=== PATIENT | female | born 1960 | race Caucasian/White ===

== ENCOUNTER 2017-12-24 22:51 | Inpatient (IN) | payer OTHER, MEDICAID ==
[~2017-12-24] VITALS: Ht 172.7 cm; Wt 92.3 kg
[2017-12-24 22:54] VITALS: Ht 172.7 cm; Wt 92.3 kg
[2017-12-24 23:50] LABS: BASOPHIL % 0.4 % (0-2); PLATELET COUNT 207 x10^3mcL (130-400); RED CELL DISTRIBUTION WIDTH 12.6 % (11.5-14.5)
[2017-12-24 23:58] LABS: CALCIUM 8.9 mg/dL (8.5-10.1); CARBON DIOXIDE 26.9 mmol/L (21-32); CHLORIDE SERUM 103 mmol/L (98-107); CREATININE SERUM 0.8 mg/dL (0.6-1.0); GFR1 > 60 mL/min; GLUCOSE SERUM 100 mg/dL (74-106); POTASSIUM SERUM 3.6 mmol/L (3.5-5.1); SODIUM SERUM 140 mmol/L (136-145)
[2017-12-25 00:05] LABS: ALBUMIN 3.5 g/dL (3.4-5.0); ALKALINE PHOSPHATASE 48 U/L (46-116); ALT/SGPT 19 U/L (14-59); AST/SGOT 16 U/L (15-37); BILIRUBIN TOTAL 0.3 mg/dL (0.20-1.00); TOTAL PROTEIN, SERUM 7.7 g/dL (6.4-8.2)
[2017-12-25] MEDS ORDERED: NOR5 PO ×2 (02:08→02:30)
[2017-12-25 04:02] VITALS: BP 146/85
[2017-12-25 04:04] LABS: T3 TOTAL 1.85 ng/mL
[2017-12-25 04:10] LABS: MAGNESIUM 1.8 mg/dL (1.8-2.4); PHOSPHOROUS 3.9 mg/dL (2.5-4.9)
[2017-12-25 04:16] LABS: CHOLESTEROL/HDL RATIO 4.8
[2017-12-25 04:30] LABS: FREE T4 1.24 ng/dL (0.76-1.46); FREE THYROXINE INDEX 3.3 ug/dL (1.4-4.5); T4(THYROXINE) 12.4 ug/dL (4.7-13.3)
[2017-12-25 04:49] VITALS: BP 146/85
[2017-12-25 08:18] VITALS: BP 143/81
[2017-12-25 13:15] VITALS: BP 138/77
[2017-12-25 18:01] VITALS: BP 135/75
[2017-12-25 18:51] LABS: UA SPECIFIC GRAVITY >=1.030 (1.005-1.035); microscopic required? YES; urine erythrocyte NEGATIVE (NEGATIVE)
[2017-12-25 19:00] LABS: AMPHETAMINE QUAL UR NONE DETECTED (See below)
[2017-12-25 22:15] VITALS: BP 133/85
[2017-12-26 06:10] VITALS: BP 137/68
[2017-12-26 07:05] LABS: CALCIUM 9.2 mg/dL (8.5-10.1); CARBON DIOXIDE 26.7 mmol/L (21-32); CHLORIDE SERUM 105 mmol/L (98-107); CREATININE SERUM 0.8 mg/dL (0.6-1.0); GFR1 > 60 mL/min; GLUCOSE SERUM 195 mg/dL (74-106); MAGNESIUM 1.8 mg/dL (1.8-2.4); PHOSPHOROUS 3.7 mg/dL (2.5-4.9); POTASSIUM SERUM 3.8 mmol/L (3.5-5.1); SODIUM SERUM 142 mmol/L (136-145)
[2017-12-26 07:42] LABS: PLATELET COUNT 237 x10^3mcL (130-400); RED CELL DISTRIBUTION WIDTH 12.7 % (11.5-14.5)
[2017-12-26 07:47] LABS: BASOPHIL % 0 % (0-2)
[2017-12-26] MEDS ORDERED: ZIT250 PO (09:29)
[2017-12-26] MEDS ORDERED: MEDDP PO (09:34)
[2017-12-26] MEDS ORDERED: LAC PO (09:34)
[2017-12-26 09:42] VITALS: BP 128/70
[2017-12-26 10:32] VITALS: BP 153/72
== END 2017-12-26 11:43 | disposition home or self-care (01) | DRG 190 ==
LOC: ED 22:51 → DU 12-25 03:12
PROVIDERS: Emergency Medicine; Family Medicine
DX: J44.1 Chronic obstructive pulmonary disease with (acute) exacerbation (principal); N17.0 Acute kidney failure with tubular necrosis; R73.03 Prediabetes; I10 Essential (primary) hypertension; E02 Subclinical iodine-deficiency hypothyroidism; R80.9 Proteinuria, unspecified; E78.5 Hyperlipidemia, unspecified; E66.9 Obesity, unspecified; Z68.30 Body mass index [BMI] 30.0-30.9, adult; F17.210 Nicotine dependence, cigarettes, uncomplicated
CPT/HCPCS: 83880; 84439; 99406; J0696; J1100; J1200; J1885; J1956; J2060; J2920; J2930; J3490; J7030; J7613; J7620; J7633; J7644; Q0092